=== PATIENT | male | born 1955 | race Caucasian/White ===

== ENCOUNTER 2019-11-28 16:44 | Inpatient (IN) | payer OTHER ==
[~2019-11-28] VITALS: Ht 182.9 cm; Wt 44.4 kg
[2019-11-28 17:49] LABS: BASOPHILS ABSOLUTE AUTO 0.09 K/mm3 (0.00-0.23); BASOPHILS PERCENT AUTO 1 % (0-2); EOSINOPHILS ABSOLUTE AUTO 0.18 K/mm3 (0.00-0.68); EOSINOPHILS PERCENT AUTO 1 % (0-6); Hematocrit 44.6 % (37.0-53.0); Hemoglobin 14.6 g/dL (13.5-17.5); IMMATURE GRAN ABSOLUTE AUTO 0.08 K/mm3 (0.00-0.10); IMMATURE GRAN PERCENT AUTO 1 % (0-1); LYMPHOCYTES ABSOLUTE AUTO 1.21 K/mm3 (0.84-5.20); LYMPHOCYTES PERCENT AUTO 8 % (21-46); MONOCYTES ABSOLUTE AUTO 0.66 K/mm3 (0.16-1.47); MONOCYTES PERCENT AUTO 4 % (4-13); Mean Corpuscular HGB Conc 32.7 g/dL (31.5-36.5); Mean Corpuscular Volume 92 fL (80-100); Mean Platelet Volume 11.3 fL (9.1-12.4); NEUTROPHILS PERCENT AUTO 86 % (41-73); Platelet Count 223 K/mm3 (150-400); RDW Standard Deviation 40.3 fL (35.1-46.3); Red Blood Cell Count 4.87 M/mm3 (4.30-5.90); White Blood Cell Count 15.92 K/mm3 (4.00-11.30)
[2019-11-28 18:13] LABS: Alanine Aminotransfer (ALT/SGP 35 U/L (12-78); Albumin, Blood 3.7 g/dL (3.4-5.0); Albumin/Globulin Ratio 1.2 (0.8-1.8); Alk Phos 87 U/L (50-136); Anion Gap 4 mmol/L (6-16); Aspartate Aminotrans (AST/SGOT 18 U/L (12-37); Bilirubin, Total 0.5 mg/dL (0.1-1.0); Blood Urea Nitrogen 19 mg/dL (8-24); Bun/Creatinine Ratio 15.8 (12.0-20.0); CO2, Blood 27 mmol/L (21-32); Chloride, Blood 109 mmol/L (98-108); Globulin, Blood 3.1 g/dL (2.2-4.0); Glomerular Filtration Rate >60 (60-); Glucose, Blood 112 mg/dL (70-99); Potassium, Blood 4.6 mmol/L (3.5-5.5); Sodium, Blood 140 mmol/L (136-145); Total Protein, Blood 6.8 g/dL (6.4-8.2); Troponin I <0.015 ng/mL (0.000-0.040)
[2019-11-28] MEDS ORDERED: ATOR20 PO (18:23)
[2019-11-28] MEDS ORDERED: Aspir 8181 MG PO (18:23)
[2019-11-28] MEDS ORDERED: BUPR150ER PO (18:25)
[2019-11-28 18:45] LABS: International Normalized Ratio 0.99; Prothrombin Time Results 10.6 Sec (9.7-11.5)
[2019-11-28 21:00] LABS: Calcium, Ionized (POC) 1.14 mmol/L (1.10-1.46); Chloride (POC) 102 mmol/L (98-108); Creatinine (POC) 1.2 mg/dL (0.8-1.3); Glucose (ISTAT POC) 136 mg/dL (70-99); Hemoglobin (POC) 14.3 g/dL (13.5-17.5); Sodium (POC) 137 mmol/L (135-148); Total CO2 (POC) 25 mmol/L (21-32)
[2019-11-29 00:10] LABS: Hematocrit 39.3 % (37.0-53.0)
[2019-11-29 04:03] LABS: Hematocrit 39.4 % (37.0-53.0); Hemoglobin 12.9 g/dL (13.5-17.5)
[2019-11-29 11:07] LABS: Anion Gap 4 mmol/L (6-16); Blood Urea Nitrogen 18 mg/dL (8-24); CO2, Blood 29 mmol/L (21-32); Calcium, Blood 8.2 mg/dL (8.5-10.1); Chloride, Blood 107 mmol/L (98-108); Glomerular Filtration Rate >60 (60-); Glucose, Blood 102 mg/dL (70-99); Sodium, Blood 140 mmol/L (136-145)
[2019-11-29 12:58] LABS: Hematocrit 37.9 % (37.0-53.0); Hemoglobin 12.4 g/dL (13.5-17.5)
--- NOTE | 2019-11-29 13:43 | NUR ---
PT WISHED TO SPEAK TO DR BARTLETT BEFORE PROCEDURE STATED FEELING BETTERM, WISHED TO DISCUSS W/DR BARTLETT PRIOR TO PROCEDURE. DR BARTLETT IN. ORDERS OBTAINED FOR LABS AND CTA OF ABDOMEN.
[2019-11-29 14:42] LABS: Hematocrit 39.9 % (37.0-53.0); Hemoglobin 12.5 g/dL (13.5-17.5)
--- NOTE | 2019-11-29 18:35 | NUR ---
SUMMARY NO ACUTE CHANGES T/O SHIFT. PT'S HGB STABILIZED AT 12.5. PT DISCUSSED W/DR BARTLETT AND AFTER RESULTS OF HGB AND CTA, DECISION WAS MADE TO NOT PERFORM EMBOLIZATION PROCEDURE TODAY. PLAN TO RECHECK HEMOGLOBIN IN AM. PT TO BE NPO AFTER MN IN CASE PROCEDURE INDICATED. PT MEDICATED ONCE DURING SHIFT FOR PAIN. REPORTS SORE THIS EVENING BUT FEELS IMPROVING AND DENIES NEED FOR MEDICATION. INDEPENDENT IN ROOM. TOLERATING DIET. CALL LIGHT IN REACH.
--- NOTE | 2019-11-30 00:11 | NUR ---
MEDITECH DOWNTIME UNEXPECTED. I RECHARTED WHAT I COULD REMEMBER FOR THE PATIENT.
[2019-11-30 04:53] LABS: Hemoglobin 11.3 g/dL (13.5-17.5)
--- NOTE | 2019-11-30 06:00 | NUR ---
SHIFT SUMMARY: SPLENIC LACERATION PT IS A&OX4 WHEN WOKEN UP. VITALS ARE WNL AND IS ON RA. HE IS ABLE TO VOID AND HAVE BM'S. HE ATE ADEQUATELY ACCORDING TO DAYSHIFT NURSE. HE HAS BEEN NPO SINCE MIDNIGHT. HE COMPLAINED ONCE DURING THE SHIFT OF A SUDDEN PAIN IN HIS LUQ AND MORE DISTENTION IN THE ABD. 0.5 MG OF DILAUDID MANAGED THIS PAIN. SINCE GIVING HIM THIS PAIN MED ONCE HE HAS BEEN SLEEPING THROUGHOUT SHIFT. CALLS APPROPRIATELY WHEN NEEDED. CALL LIGHT WITHIN REACH. THE PLAN IS POSSIBLE SURGERY TODAY DEPENDING ON H+H VALUES AND HOW THE PATIENT DID DURING THE NIGHT.
--- NOTE | 2019-11-30 07:30 | NUR ---
dr wilder by to see pt plan for procedure with dr taylor today to drain spleen hematoma pt reports llq abd pain 02/16 at this time with inc abd dist semi firm to the touch prn mouth care npo at this time
--- NOTE | 2019-11-30 09:10 | NUR ---
IVF INFUSING PER NEW ORDER PT JUST OUT OF SHOWER WENT OVER PT'S LABS
--- NOTE | 2019-11-30 10:57 | NUR ---
heart center called re procedure no news re time
--- NOTE | 2019-11-30 12:45 | NUR ---
dr taylor called re procedure to have soon discussed with pt
--- NOTE | 2019-11-30 13:42 | NUR ---
pt transported to heart center via [facility]
--- NOTE | 2019-11-30 16:40 | NUR ---
ASSUMED CARE AT 1500 FROM [facility]ART [facility]ENTER. LAYING FLAT ON GURNEY, RIGHT GROIN DRESSING IN PLACE. NO BLEEDING AT THIS TIME, WILL CONTINUE TO MONITOR AND REMAIN FLAT FOR THE NEXT 4 HOURS.
--- NOTE | 2019-11-30 17:18 | NUR ---
CONTINUES TO LAY FLAT, NO BLEEDING FROM RIGHT GROIN SITE, DRESSING CLEAN DRY AND INTACT.
--- NOTE | 2019-11-30 18:31 | NUR ---
SHIFT SUMMARY; IN HOUSE TRANSFER, RIGHT GROIN CHESTER PATCH IN PLACE CLEAN AND DRY. VSS, LR INFUSING AT 100ML/HR. MEDICATED NEEDED FOR NAUSEA AND PAIN. A/A/OX4, WILL CONTINUE TO MONITOR AND TREAT UNTIL CHANGE OF SHIFT.
--- NOTE | 2019-11-30 23:56 | NUR ---
PATIENT TRANSFER FROM [facility]. ALERT AND ORIENTED, MOVES TO POC IN BED. REORIENTED TO PRIOR ROOM (PRE OP). CALL LIGHT IN REACH. LUNGS CLEAR T/O, HEART WITHOUT ADVENTITIOUS SOUNDS, ON TELEMETRY IN SINUS RHYTHM. NO EDEMA, PULSES ARE STRONG. ABDOMEN IS PAINFUL WITH BENDING. RIGHT GROIN WITH A TEGADERM PATCH OVER FEMORAL SITE, NO BLEEDING, NO HEMATOMA.
[2019-12-01 05:59] LABS: BASOPHILS ABSOLUTE AUTO 0.04 K/mm3 (0.00-0.23); BASOPHILS PERCENT AUTO 0 % (0-2); EOSINOPHILS PERCENT AUTO 2 % (0-6); Hemoglobin 11.4 g/dL (13.5-17.5); IMMATURE GRAN ABSOLUTE AUTO 0.04 K/mm3 (0.00-0.10); IMMATURE GRAN PERCENT AUTO 0 % (0-1); LYMPHOCYTES ABSOLUTE AUTO 0.81 K/mm3 (0.84-5.20); LYMPHOCYTES PERCENT AUTO 6 % (21-46); MONOCYTES ABSOLUTE AUTO 0.76 K/mm3 (0.16-1.47); MONOCYTES PERCENT AUTO 6 % (4-13); Mean Corpuscular HGB 30.6 pg (26.0-34.0); Mean Corpuscular HGB Conc 32.6 g/dL (31.5-36.5); Mean Corpuscular Volume 94 fL (80-100); NEUTROPHILS ABSOLUTE AUTO 10.84 K/mm3 (1.96-9.15); NEUTROPHILS PERCENT AUTO 85 % (41-73); Platelet Count 164 K/mm3 (150-400); RDW Coefficient Variation 12.1 % (11.7-14.2); RDW Standard Deviation 41.8 fL (35.1-46.3); Red Blood Cell Count 3.73 M/mm3 (4.30-5.90); White Blood Cell Count 12.69 K/mm3 (4.00-11.30)
--- NOTE | 2019-12-01 06:34 | NUR ---
PATIENT HAS HAD A HEADACHE SINCE AROUND 4AM. HE DID HAVE A HALF CUP OF COFFEE THAT DID HELP. THIS MORNING HE STATES THAT HE FEELS SICK BUT CANNOT STATE EXACTLY HOW. NO COUGH, NO FEVER, CHILLS, OR SWEATS. [facility] FROM THIS AM SHOW NO FURTHER BLEEDING. CONTINUES TO BE INDEPENDENT IN THE ROOM. CALL LIGHT IN REACH NO ACUTE CHANGES.
--- NOTE | 2019-12-01 14:28 | NUR ---
DISCHARGE SUMMARY DISCUSSED DISCHARGE INSTRUCTIONS W/ PT INCLUDING WHAT TO SELF MONITOR FOR AND WHO TO CALL IF HE HAS QUESTIONS, DISCUSSED NEW MEDICATIONS, DISCUSSED POST PROCEDURAL CARE AND SELF MANAGEMENT, PROVIDED WRITTEN EDUCATION TO PT. DC'D ALL IV ACCESS AND VERIFIED NO OTHER ACCESS DEVICE PRESENT, PT STATED HE HAD NO QUESTIONS. PT LEFT W/ HIS GUEST @ 2268.
== END 2019-12-01 13:51 | disposition home or self-care (01) | DRG 989 ==
LOC: ER 16:44 → SURS 23:15 → PCU 11-30 15:26 → SURS 11-30 22:55
PROVIDERS: Emergency Medicine; Physician Assistant; Radiology Diagnostic Radiology; Surgery; ADMIT Surgery
PROC: 04L43DZ Occlusion of Splenic Artery with Intraluminal Device, Percutaneous Approach (ICD-10-PCS; principal; 2019-11-30)
DX: S36.039A Unspecified laceration of spleen, initial encounter (principal); I48.91 Unspecified atrial fibrillation; Z79.82 Long term (current) use of aspirin; W19.XXXA Unspecified fall, initial encounter
CPT/HCPCS: 36247; 36248; 36415; 37244; 71045; 71260; 72125; 73030; 74175; 74177; 75726; 75774; 76705; 80047; 80048; 80053; 83690; 84484; 85014; 85018; 85025; 85610; 85730; 86850; 86900; 86901; 93005; 93010; 96374; 99152; 99153; 99285-25; C1760; C1769; C1887; C1894; J1170; J1644; J2250; J2405; J3010; J7030; J7120; Q9967; U0003

== ENCOUNTER 2023-01-14 22:43 | Inpatient (IN) | payer MEDICARE, BC ==
[~2023-01-14] VITALS: Ht 188 cm; Wt 102.3 kg
[~2023-01-14 22:43] MED LIST: ATOR20 PO; Aspir 8181 MG PO; BUPR150ER PO
[2023-01-14] MEDS ORDERED: METOPROLOL SUCC25 MG PO (23:11)
[2023-01-14 23:24] LABS: BASOPHILS PERCENT AUTO 1 % (0-2); EOSINOPHILS PERCENT AUTO 5 % (0-6); Hematocrit 47.9 % (37.0-53.0); Hemoglobin 16.1 g/dL (13.5-17.5); IMMATURE GRAN ABSOLUTE AUTO 0.05 K/mm3 (0.00-0.10); IMMATURE GRAN PERCENT AUTO 1 % (0-1); LYMPHOCYTES PERCENT AUTO 22 % (21-46); MONOCYTES ABSOLUTE AUTO 0.88 K/mm3 (0.16-1.47); MONOCYTES PERCENT AUTO 9 % (4-13); Mean Corpuscular HGB 30.4 pg (26.0-34.0); Mean Corpuscular HGB Conc 33.6 g/dL (31.5-36.5); Mean Corpuscular Volume 91 fL (80-100); Mean Platelet Volume 10.7 fL (9.1-12.4); NEUTROPHILS ABSOLUTE AUTO 6.37 K/mm3 (1.96-9.15); NEUTROPHILS PERCENT AUTO 63 % (41-73); Platelet Count 196 K/mm3 (150-400); RDW Coefficient Variation 12.6 % (11.7-14.2); RDW Standard Deviation 41.6 fL (35.1-46.3); Red Blood Cell Count 5.29 M/mm3 (4.30-5.90)
[2023-01-14] MEDS ORDERED: SPIRIVA RESPIMAT4 G2 INH (23:33)
[2023-01-14 23:44] LABS: Albumin, Blood 3.7 g/dL (3.4-5.0); Albumin/Globulin Ratio 0.9 (0.8-1.8); Bilirubin, Total 0.3 mg/dL (0.1-1.0); Bun/Creatinine Ratio 18.3 (12.0-20.0); Creatinine, Blood 1.09 mg/dL (0.60-1.20); Globulin, Blood 4.1 g/dL (2.2-4.0); Potassium, Blood 3.7 mmol/L (3.5-5.5); Total Protein, Blood 7.8 g/dL (6.4-8.2)
[2023-01-15] VITALS (43 sets, daily range): BP systolic 119–201; BP diastolic 87–138
[2023-01-15] MEDS ORDERED: NEURONTIN300 MG PO (02:38)
--- NOTE | 2023-01-15 03:30 | NUR ---
PATIENT IS A NEW ADMIT FROM THE ED. AXOX 4 AND INDEPENDENT TRANSFER FROM W/C TO BED. DENIES CHEST PAIN, SOB, AND N/V. ON ROOM AIR. TELEMETRY PLACED NSR 65. BP 161/91 AND LAB CALLED WITH TROPONIN 214 UP FROM 23. [address] BROWN NOTIFIED AND REPORTS WILL PUT ORDERS IN FOR HEPARIN DRIP AND METOPROL. PATIENT ORIENTED TO ROOM AND CALL LIGHT SYSTEM. RESTING IN BED AFTER ASSESSMENT. WCTM.
[2023-01-15 04:25] LABS: BASOPHILS ABSOLUTE AUTO 0.07 K/mm3 (0.00-0.23); BASOPHILS PERCENT AUTO 1 % (0-2); EOSINOPHILS ABSOLUTE AUTO 0.24 K/mm3 (0.00-0.68); EOSINOPHILS PERCENT AUTO 3 % (0-6); Hematocrit 42.8 % (37.0-53.0); Hemoglobin 14.5 g/dL (13.5-17.5); IMMATURE GRAN ABSOLUTE AUTO 0.04 K/mm3 (0.00-0.10); IMMATURE GRAN PERCENT AUTO 0 % (0-1); LYMPHOCYTES ABSOLUTE AUTO 1.49 K/mm3 (0.84-5.20); LYMPHOCYTES PERCENT AUTO 16 % (21-46); MONOCYTES ABSOLUTE AUTO 0.75 K/mm3 (0.16-1.47); MONOCYTES PERCENT AUTO 8 % (4-13); Mean Corpuscular HGB 30.6 pg (26.0-34.0); Mean Corpuscular HGB Conc 33.9 g/dL (31.5-36.5); Mean Corpuscular Volume 90 fL (80-100); Mean Platelet Volume 10.5 fL (9.1-12.4); NEUTROPHILS ABSOLUTE AUTO 6.79 K/mm3 (1.96-9.15); NEUTROPHILS PERCENT AUTO 72 % (41-73); Platelet Count 172 K/mm3 (150-400); RDW Coefficient Variation 12.5 % (11.7-14.2); RDW Standard Deviation 41.5 fL (35.1-46.3); Red Blood Cell Count 4.74 M/mm3 (4.30-5.90); White Blood Cell Count 9.38 K/mm3 (4.00-11.30)
[2023-01-15 04:39] LABS: Anti-Xa UFH, PHA Monitoring <0.10 IU/mL; International Normalized Ratio 1.01; Prothrombin Time Results 10.6 Sec (9.7-11.5)
[2023-01-15 04:49] LABS: Albumin, Blood 3.2 g/dL (3.4-5.0); Albumin/Globulin Ratio 0.9 (0.8-1.8); Bilirubin, Total 0.4 mg/dL (0.1-1.0); Bun/Creatinine Ratio 19.8 (12.0-20.0); Calcium, Blood 8.7 mg/dL (8.5-10.1); Creatinine, Blood 1.01 mg/dL (0.60-1.20); Globulin, Blood 3.6 g/dL (2.2-4.0); Potassium, Blood 4.7 mmol/L (3.5-5.5); Total Protein, Blood 6.8 g/dL (6.4-8.2)
[2023-01-15 10:22] LABS: CHOL/HDL RATIO 3.2; Cholesterol 142 mg/dL (50-200); HDL Cholesterol 45 mg/dL (>39); LDL/HDL RATIO 1.6; Low Density Lipoprotein Chol 74 mg/dL (0-110); Triglycerides 115 mg/dL (30-160); Very Low Density Lipoprot Chol 23 mg/dL (6-32)
[2023-01-15 10:24] LABS: Thyroid Stimulating Hormone 0.928 uIU/mL (0.360-4.800)
--- NOTE | 2023-01-15 10:48 | NUR ---
[facility] FROM [facility] HERE TO GET PT VIA W/C. HEPARIN GTT STOPPED PER FOOT SETTER. CALLED PHARMACY AND NOTIFIED OF HEPARIN GTT STOPAGE. CARE ON GOING.
--- NOTE | 2023-01-15 18:08 | NUR ---
SHIFT SUMMARY PT TRANSFERRED TO ICU FROM PCU FOR NITRO GTT, POST STENT. PT A&OX4, FOLLOWING COMMANDS, HODGES. C/O MODERATE TO SEVERE INTERMITTENT CP, MEDICATING c PRN PAIN MEDS & NITRO. TITRATING NITRO FOR GOAL SBP <130. AGGRASTAT AND HEPARIN INFUSING AT PRESCRIBED RATE. TR BAND REMOVED, TRACE BLOOD UNDER DRESSING. REPEAT EKG COMPLETE & SIGNED BY BILLING CLINICIAN.
--- NOTE | 2023-01-15 21:30 | NUR ---
ASSUMED CARE AT 1900 PT LAYING IN BED SLEEPING AT SHIFT CHANGE. HE WAS DROWSY WHEN WOKEN UP BUT IS A/O X4 AND ABLE TO MAKE HIS NEEDS KNOWN. SPO2 >95% ON RA. AFEBRILE. HR 70-80'S. SBP 140'S; NITRO BEING TITRATED FOR GOAL OF SBP <130, SEE FLOWSHEET FOR TITRATION. HE IS NAUSEAS AND NOT TOLERATING PO FLUID AND CRACKERS; PRN ZOFRAN GIVEN; AN HOUR LATER HE HESITANTLY AGREED TO TAKE PO PM MEDS EVEN THOUGH HE WAS STILL FEELING SLIGHTLY NAUSEAS. PT WAS ABLE TO AMBULATE TO TOILET IN ROOM WITH MINIMAL ASSISTANCE, MOSTLY LINE MANAGEMENT. RT RADIAL SITE SHOWS BRUSING AND SOME DRIED BLOOD UNDER TEGADERM. HEPARIN INFUSING AT 12UNITS/KG/HR. AGGRASTAT INFUSING AT 18ML/HR. SEE SHIFT ASSESSMENT FOR FULL ASSESSMENT.
--- NOTE | 2023-01-15 23:47 | NUR ---
UPDATE CALL MADE TO DR DANIELS REGARDING PT FEELING NAUSEAS AND HAVING EMESIS, HAVING A HEADACHE, AND FEELING "LIGHT HEADED". PRN ZOFRAN GIVEN EARLIER THIS SHIFT. DR DANIELS GAVE ORDERS TO ADD PHENERGAN FOR NAUSEA. HE ALSO ASKED ABOUT PT CHEST PAIN AND HOW MUCH THE NITRO GTT WAS INFUSING. PT STATES HE HAS 2/10 CHEST PAIN AND THAT THE NITRO GTT HAS BEEN TITRATED FOR GOAL OF SBP <130, CURRENTLY THE NITRO GTT WAS AT 135MCG/MIN WITH SBP 140'S. DR DANIELS STATED THAT NITRO GTT CAN BE TITRATED DOWN SINCE PT CHEST PAIN WAS 2/10 AND SINCE HE WAS SYMPTOMATIC. HE ALSO GAVE ORDERS FOR PRN LABETALOL IF SBP >160. WILL CONT PLAN OF CARE.
[2023-01-16] VITALS (65 sets, daily range): BP systolic 129–169; BP diastolic 82–117
--- NOTE | 2023-01-16 04:37 | NUR ---
UPDATE AFTER CONVERSATION WITH DR DANIELS, NITRO GTT WAS TITRATED DOWN TO SB, ANOTHER DOSE OF ZOGRAN GIVEN AND PT WAS ABLE TO SLEEP FOR ABOUT AN HOUR. AT 0345 PT WOKE UP TO CRUSHING CHEST PAIN AND PRESSURE RATING PAIN 4-5 OUT OF 10; ONE EPISODE OF EMESIS AT THIS TIME ALSO. PRN MORPHINE GIVEN AND NITRO GTT RESTARTED AT 20MCG/MIN. MORNING EKG DONE AT THIS TIME THAT SHOWS NSR. CALL MADE TO HOSPITALIST WHO PROVIDED ORDERS FOR REGLAN AND SINGLE DOSE OF ATIVAN IF THE REGLAN WAS NOT HELPFUL. ONCE CHEST PAIN HAD IMPROVED BACK TO WHAT IT WAS BEFORE INCIDENT (02/16), PT NAUSEA AND HEADACHE RETURNED; NITRO TITRATED DOWN TO 10MCG/MIN. PT CURRENTLY SLEEPING AGAIN. WILL CONT PLAN OF CARE.
[2023-01-16 06:11] LABS: BASOPHILS ABSOLUTE AUTO 0.02 K/mm3 (0.00-0.23); BASOPHILS PERCENT AUTO 0 % (0-2); EOSINOPHILS ABSOLUTE AUTO 0.01 K/mm3 (0.00-0.68); EOSINOPHILS PERCENT AUTO 0 % (0-6); Hematocrit 41.7 % (37.0-53.0); Hemoglobin 13.9 g/dL (13.5-17.5); IMMATURE GRAN ABSOLUTE AUTO 0.08 K/mm3 (0.00-0.10); IMMATURE GRAN PERCENT AUTO 1 % (0-1); LYMPHOCYTES PERCENT AUTO 6 % (21-46); MONOCYTES ABSOLUTE AUTO 0.94 K/mm3 (0.16-1.47); MONOCYTES PERCENT AUTO 6 % (4-13); Mean Corpuscular HGB Conc 33.3 g/dL (31.5-36.5); Mean Corpuscular Volume 90 fL (80-100); Mean Platelet Volume 10.8 fL (9.1-12.4); NEUTROPHILS ABSOLUTE AUTO 14.97 K/mm3 (1.96-9.15); NEUTROPHILS PERCENT AUTO 88 % (41-73); Platelet Count 198 K/mm3 (150-400); RDW Coefficient Variation 12.6 % (11.7-14.2); RDW Standard Deviation 41.5 fL (35.1-46.3); Red Blood Cell Count 4.64 M/mm3 (4.30-5.90); White Blood Cell Count 17.02 K/mm3 (4.00-11.30)
[2023-01-16 06:32] LABS: Albumin, Blood 3.3 g/dL (3.4-5.0); Albumin/Globulin Ratio 0.9 (0.8-1.8); Bilirubin, Total 0.6 mg/dL (0.1-1.0); Bun/Creatinine Ratio 14.9 (12.0-20.0); Calcium, Blood 8.4 mg/dL (8.5-10.1); Creatinine, Blood 0.81 mg/dL (0.60-1.20); Globulin, Blood 3.6 g/dL (2.2-4.0); Total Protein, Blood 6.9 g/dL (6.4-8.2)
--- NOTE | 2023-01-16 06:57 | NUR ---
END OF SHIFT SUMMARY NO EVENTS FROM LAST NOTE. HE CONT TO BE A/O X4 AND ABLE TO MAKE HIS NEEDS KNOWN. PRN MORPHINE HAS HELPED CHEST PAIN. AFEBRILE. SPO2 >95% ON RA. HR 70-80'S. SBP 130-150'S; LABETALOL GIVEN ONCE AND MINIMALLY HELPFUL; NITRO NO INFUSING AT 10MCG/MIN. PT HAD A TOTAL OF 400ML OF EMESIS OUTPUT; CONT TO HAV MILD NAUSEA AT THIS TIME. PT UP TO THE TOILET WITH MINIMAL ASSIST FOR CORD MANAGMEMENT. RT RADIAL SITE CONT TO HAVE BRUISING, NO NEW BLEEDING NOTED. HEPARIN INFUSING AT 10UNITS/KG/HR. AGGRASTAT CONT TO INFUSE AT 18ML/HR. WILL REPORT TO AM RN WHEN AVAILABLE.
--- NOTE | 2023-01-16 08:03 | NUR ---
SHIFT ASSESSMENT ASSUMED CARE OF PT @ 0700, REPORT RECEIVED FROM DEBI BLAIR. PT RESTING, A&OX4. C/O MODERATE HEADACHE, MEDICATED c PRN ACETAMINOPHEN. ALSO C/O MILD NAUSEA WITHOUT VOMITING, NOT TIME FOR PRN ANTIEMETICS. CP 0/10 c NITRO @ 10. PT HAD 6 BEAT RUN OF V-TACH, DENIED CP/SOB, STRIP IN CHART. AGGRASTAT STOPPED @ 0750 PER JEREMIAH. R RADIAL SITE WITH BRUISING, MILD SWELLING, NO NEW BLEEDING.
--- NOTE | 2023-01-16 17:23 | NUR ---
SHIFT SUMMARY PT REMAINS A&OX4, OUT OF BED THIS AFTERNOON AMBULATING IN ROOM. C/O MILD SOB THIS AFTERNOON WITHOUT CP, DR BANDA CONSULTED REGARDING SOB AND HTN, ONE TIME DOSE OF [place] GIVEN. SATS REMAINED >95% ON RA, LSCTA. ALSO ADMINSTERED PRN LABETOLOL, SBP CURRENTLY 150. PT STILL C/O INTERMITTENT NAUSEA, MEDICATED MULTIPLE TIMES WITH ZOFRAN. NITRO OFF FOR MOST OF THE DAY. HEPARIN GTT INFUSING PER PHARMACY ORDER. PT USING URINAL WITHOUT ISSUE, NO BM. PTS SON AT BEDSIDE THIS EVENING VISITING FROM OUT OF STATE.
--- NOTE | 2023-01-16 23:08 | NUR ---
ASSUMED CARE AT 1900 PT LAYING IN BED NAPPING AT SHIFT CHANGE. HE IS A/O X4 AND ABLE TO MAKE HIS NEEDS KNOWN; HE CAN AMBULATE WELL SAFELY AND IS MINDFUL OF THE CORDS AND LINES. SPO2 > 95% ON RA. AFEBRILE. HR 90-110'S. SBP 150-160'S; PRN LABETALOL GIVEN. MILD NAUSEA NOTED THAT COMES AND GOES; PT DECLINED NAUSEA MEDS AT THIS TIME. HE USES URINAL APPROPRIATLY. HEPARIN INFUSING AT 8UNITS/KG/HR. SEE SHIFT ASSESSMENT FOR FULL ASSESSMENT.
[2023-01-17] VITALS (22 sets, daily range): BP systolic 123–166; BP diastolic 78–112
[2023-01-17 03:04] LABS: BASOPHILS ABSOLUTE AUTO 0.05 K/mm3 (0.00-0.23); BASOPHILS PERCENT AUTO 0 % (0-2); EOSINOPHILS ABSOLUTE AUTO 0.08 K/mm3 (0.00-0.68); EOSINOPHILS PERCENT AUTO 0 % (0-6); Hematocrit 43.4 % (37.0-53.0); Hemoglobin 14.7 g/dL (13.5-17.5); IMMATURE GRAN ABSOLUTE AUTO 0.08 K/mm3 (0.00-0.10); IMMATURE GRAN PERCENT AUTO 0 % (0-1); LYMPHOCYTES ABSOLUTE AUTO 0.93 K/mm3 (0.84-5.20); LYMPHOCYTES PERCENT AUTO 5 % (21-46); MONOCYTES ABSOLUTE AUTO 1.09 K/mm3 (0.16-1.47); MONOCYTES PERCENT AUTO 6 % (4-13); Mean Corpuscular HGB 30.4 pg (26.0-34.0); Mean Corpuscular HGB Conc 33.9 g/dL (31.5-36.5); Mean Corpuscular Volume 90 fL (80-100); Mean Platelet Volume 10.8 fL (9.1-12.4); NEUTROPHILS ABSOLUTE AUTO 15.94 K/mm3 (1.96-9.15); NEUTROPHILS PERCENT AUTO 88 % (41-73); Platelet Count 182 K/mm3 (150-400); RDW Coefficient Variation 12.7 % (11.7-14.2); RDW Standard Deviation 41.6 fL (35.1-46.3); Red Blood Cell Count 4.84 M/mm3 (4.30-5.90); White Blood Cell Count 18.17 K/mm3 (4.00-11.30)
[2023-01-17 03:26] LABS: Albumin, Blood 3.1 g/dL (3.4-5.0); Albumin/Globulin Ratio 0.8 (0.8-1.8); Bilirubin, Total 0.8 mg/dL (0.1-1.0); Bun/Creatinine Ratio 12.7 (12.0-20.0); Calcium, Blood 8.5 mg/dL (8.5-10.1); Creatinine, Blood 0.79 mg/dL (0.60-1.20); Globulin, Blood 3.7 g/dL (2.2-4.0); Potassium, Blood 3.9 mmol/L (3.5-5.5); Total Protein, Blood 6.8 g/dL (6.4-8.2)
--- NOTE | 2023-01-17 06:11 | NUR ---
END OF SHIFT SUMMARY NO ACUTE EVENTS OVERNIGHT. HE WAS ABLE TO SLEEP FOR ABOUT 7 HOURS. HE CONT TO BE A/O X4 AND ABLE TO MAKE HIS NEEDS KNOWN; SAFELY AMBULATES IN ROOM INDEPENDENTLY. AFEBRILE. ONE EPISODE OF SOB 2 HOURS AFTER GIVING BRILENTA; HE STATED THAT DURING THE DAY THIS HAPPENED AND THAT HE WAS TOLD THAT THE BRILENTA HAS THIS SIDE EFFECT; AT THIS TIME HIS SPO2 >95% BUT HE REQUESTED TO BE ON 2L NC WHICH HELPED HIS SOB; ON RA NORMALLY. HR 90-110 SINUS ARRHYTHMIA NOTED WITH SOME PVC'S. SBP 130-150'S; LABETALOL GIVEN ONCE. MILD NAUSEA NOTED. HE IS ABLE TO USE URINAL INDEPENDENTLY. HEPARIN INFUSING AT 11UNITS/KG/HR. WILL REPORT TO AM RN WHEN AVAILABLE.
--- NOTE | 2023-01-17 08:50 | NUR ---
Pt. is sitting up in a recliner andwelcomes my visit. Facilitate a life review and establish rapport. Pt. is pleasant and verbalizes expectation to be discharged later today. Prayed with Pt. Pt. verbalized gratitude for the spiritual care visit.
[2023-01-17] MEDS ORDERED: Amlodipine Bes2.5 MG PO (10:00)
[2023-01-17] MEDS ORDERED: CLOP75 PO (10:01)
[2023-01-17] MEDS ORDERED: LOSA25 PO (10:01)
[2023-01-17] MEDS ORDERED: Carvedilol12.5 MG PO (10:01)
[2023-01-17] MEDS ORDERED: NITR.4SL SL (10:02)
[2023-01-17] MEDS ORDERED: PANT20 PO (10:03)
--- NOTE | 2023-01-17 11:37 | NUR ---
SHIFT SUMMARY PT ALERT AND ORIENTED, DENIES CP. WAS STILL C/O INTERMITTENT SOB RELATED TO BRILLANTA, MEDICATIONS CHANGED PER DR BANDA. NO SOB WITH PLAVIX. PTS HTN CONTROLLED WITH ADDITIONAL MEDICATIONS. THIS NURSE THOROUGHLY DISCUSSED NECESSITY FOR PT TO TAKE MEDICATIONS PRESCRIBED AND TO CALL PCP WITH CP/ INCREASED SOB. PT UNDERSTANDING OF NEW MEDICATION REGIMEN. NEW PRESCRIPTIONS FAXED TO [facility] AND CONFIRMED RECEIVAL VIA PHONE. BILATERAL IV'S DC'D. INSTRUCTIONS GIVEN REGARDING R RADIAL ACCESS SITE, F/U APPT WITH PCP, AND NEED FOR PT TO SCHEDULE CARDIAC REHAB. THIS NURSE WHEELED PT OUT TO SONS VEHICLE. PT AMBULATED WITHOUT DIFFICULTY TO CAR.
== END 2023-01-17 11:45 | disposition home or self-care (01) | DRG 247 ==
LOC: ER 22:43 → MEDS 22:44 → PCU 01-15 12:16 → ICUE 01-15 13:30
PROVIDERS: Internal Medicine; Internal Medicine Cardiovascular Disease; Physician Assistant; ADMIT Student in an Organized Health Care Education/Training Program
PROC: 027034Z Dilation of Coronary Artery, One Artery with Drug-eluting Intraluminal Device, Percutaneous Approach (ICD-10-PCS; principal; 2023-01-15)
PROC: B2111ZZ Fluoroscopy of Multiple Coronary Arteries using Low Osmolar Contrast (ICD-10-PCS; 2023-01-15)
PROC: B241ZZ3 Ultrasonography of Multiple Coronary Arteries, Intravascular (ICD-10-PCS; 2023-01-15)
DX: I21.4 Non-ST elevation (NSTEMI) myocardial infarction (principal); I16.1 Hypertensive emergency; I47.29 Other ventricular tachycardia; I48.3 Typical atrial flutter; I48.0 Paroxysmal atrial fibrillation; I25.10 Atherosclerotic heart disease of native coronary artery without angina pectoris; I10 Essential (primary) hypertension; G47.33 Obstructive sleep apnea (adult) (pediatric); J44.9 Chronic obstructive pulmonary disease, unspecified; F10.11 Alcohol abuse, in remission; F32.A Depression, unspecified; E78.5 Hyperlipidemia, unspecified; M75.91 Shoulder lesion, unspecified, right shoulder; E66.3 Overweight; R73.03 Prediabetes; D72.829 Elevated white blood cell count, unspecified; Z86.711 Personal history of pulmonary embolism; Z79.82 Long term (current) use of aspirin; Z96.653 Presence of artificial knee joint, bilateral; Z68.28 Body mass index [BMI] 28.0-28.9, adult
CPT/HCPCS: 36415; 71046; 76937; 80053; 80061; 83036; 83735; 84443; 84484; 85025; 85347; 85520; 85610; 92978; 93005; 93010; 93306; 93454; 94640; 94664; 94760; 96365; 96366; 96375; 96376; 99152; 99153; 99285-25; A9270; C1725; C1753; C1769; C1874; C1887; C1894; C9113; C9600; G0378; J1644; J2250; J2270; J2405; J2765; J3010; J3246; J7030; J7050; Q9967

== ENCOUNTER → 2023-03-01 | Outpatient (CLI) | payer BC ==
[~2023-03-01] MED LIST changes: +Amlodipine Bes2.5 MG PO; +CLOP75 PO; +Carvedilol12.5 MG PO; +LOSA25 PO; +METOPROLOL SUCC25 MG PO; +NEURONTIN300 MG PO; +NITR.4SL SL; +PANT20 PO; +SPIRIVA RESPIMAT4 G2 INH
== END | disposition home or self-care (01) ==
LOC: LAB SHORT 15:30 → LAB 15:30
DX: N45.1 Epididymitis (principal)
CPT/HCPCS: 87086

== ENCOUNTER → 2023-12-28 | Outpatient (CLI) | payer BC ==
[2023-12-28 10:52] LABS: BASOPHILS ABSOLUTE AUTO 0.06 K/mm3 (0.00-0.23); BASOPHILS PERCENT AUTO 1 % (0-2); EOSINOPHILS ABSOLUTE AUTO 0.35 K/mm3 (0.00-0.68); EOSINOPHILS PERCENT AUTO 4 % (0-6); Hematocrit 43.6 % (37.0-53.0); Hemoglobin 14.7 g/dL (13.5-17.5); IMMATURE GRAN ABSOLUTE AUTO 0.03 K/mm3 (0.00-0.10); IMMATURE GRAN PERCENT AUTO 0 % (0-1); LYMPHOCYTES PERCENT AUTO 12 % (21-46); MONOCYTES ABSOLUTE AUTO 0.78 K/mm3 (0.16-1.47); MONOCYTES PERCENT AUTO 9 % (4-13); Mean Corpuscular HGB 29.9 pg (26.0-34.0); Mean Corpuscular HGB Conc 33.7 g/dL (31.5-36.5); Mean Corpuscular Volume 89 fL (80-100); Mean Platelet Volume 11.5 fL (9.1-12.4); NEUTROPHILS ABSOLUTE AUTO 6.81 K/mm3 (1.96-9.15); NEUTROPHILS PERCENT AUTO 75 % (41-73); Platelet Count 157 K/mm3 (150-400); RDW Standard Deviation 42.2 fL (35.1-46.3); Red Blood Cell Count 4.92 M/mm3 (4.30-5.90); White Blood Cell Count 9.13 K/mm3 (4.00-11.30)
[2023-12-28 11:04] LABS: Albumin, Blood 3.4 g/dL (3.4-5.0); Albumin/Globulin Ratio 0.8 (0.8-1.8); Bilirubin, Total 0.5 mg/dL (0.1-1.0); Calcium, Blood 9.3 mg/dL (8.5-10.1); Creatinine, Blood 1.14 mg/dL (0.60-1.20); Globulin, Blood 4.2 g/dL (2.2-4.0); Potassium, Blood 4.3 mmol/L (3.5-5.5); Total Protein, Blood 7.6 g/dL (6.4-8.2)
== END ==
LOC: LAB SHORT 10:44 → LAB 10:44
PROVIDERS: Family Medicine
DX: R21 Rash and other nonspecific skin eruption (principal)
CPT/HCPCS: 80053; 85025; 85651; 86140; 87040; 87076